=== PATIENT | female | born 1990 | race Caucasian/White ===

== ENCOUNTER 2019-02-02 09:14 | Day surgery (SDC) | payer OTHER ==
[~2019-02-02] VITALS: Ht 152.4 cm; Wt 82.8 kg
[~2019-02-02 09:14] MED LIST: LIDOCAINE 2% INJ 100 MG/5 ML SDV (FOR ANES.) As Ordered ONE; LR 1,000 ML IV ONE; METOCLOPRAMIDE INJ 10MG/2ML VIAL (J2765) As Ordered ONE; MIDAZOLAM INJ 2 MG/2 ML VIAL (J2250) As Ordered ONE; MULTCAP PO; OMEGCAP4 PO; PROPOFOL 200 MG/20 ML VIAL As Ordered ONE; ROCURONIUM BROMIDE 50 MG/5 ML VIAL As Ordered ONE; SPIR100T3 PO; SUGAMMADEX SODIUM 500 MG/5 ML VIAL (BRIDION) As Ordered ONE; YAZ1TAB PO; dexameTHASONE 4 MG/ML 1ML VIAL (J1100) As Ordered ONE; fentaNYL 100 MCG/2 ML INJECTION (J3010) As Ordered ONE
[2019-02-02 10:07] LABS: HEMATOCRIT 42.5 % (36.0-47.0); HEMOGLOBIN 14.6 g/dl (12.0-15.5); MEAN CORPUSCULAR HEMOGLOBIN 30.3 pg (27.0-33.0); MEAN CORPUSCULAR HGB CONC 34.4 g/dl (32.0-36.5); MEAN CORPUSCULAR VOLUME 88.2 fl (80.0-96.0); PLATELET COUNT, AUTOMATED 243 10^3/uL (150-450); RED BLOOD COUNT 4.82 10^6/uL (4.00-5.40); WHITE BLOOD COUNT 8.8 10^3/uL (4.0-10.0)
[2019-02-02 10:32] LABS: HCG, SERUM QUALITATIVE NEGATIVE (NEGATIVE)
[2019-02-02] MEDS ORDERED: BUPIVACAINE HCL 0.25% 30 ML VIAL As Ordered ONE (13:20)
[2019-02-02] MEDS ORDERED: KETOROLAC 60 MG/2 ML VIAL (J1885) As Ordered ONE (14:05)
[2019-02-02] MEDS ORDERED: SUGAMMADEX SODIUM 500 MG/5 ML VIAL (BRIDION) As Ordered ONE (14:25)
[2019-02-02] MEDS ORDERED: oxyCODONE 5MG TAB As Ordered ONE (15:22)
[2019-02-02] MEDS ORDERED: fentaNYL 100 MCG/2 ML INJECTION (J3010) As Ordered ONE (15:22)
[2019-02-02] MEDS ORDERED: PROMETHAZINE INJ 25 MG/ML VIAL (J2550) As Ordered ONE (15:27)
[2019-02-02] MEDS ORDERED: METOCLOPRAMIDE INJ 10MG/2ML VIAL (J2765) IV PRN (15:30)
[2019-02-02] MEDS ORDERED: LR 1,000 ML IV SCH (15:30)
[2019-02-02] MEDS ORDERED: oxyCODONE 5MG TAB PO PRN (15:30)
[2019-02-02] MEDS: fentaNYL 100 MCG/2 ML INJECTION (J3010) IV PRN ×4 (15:30→15:45)
[2019-02-02] MEDS: PROMETHAZINE INJ 25 MG/ML VIAL (J2550) IV PRN ×2 (15:30→15:35)
[2019-02-02 18:08] VITALS: BP 160/98
--- NOTE | 2019-02-02 21:22 | RO ---
DATE OF PROCEDURE: 02/02/2019 PREOPERATIVE DIAGNOSES: Chronic pelvic pain and dysmenorrhea. POSTOPERATIVE DIAGNOSES: 1. Chronic pelvic pain and dysmenorrhea. 2. Stage 1 endometriosis. OPERATION PERFORMED: Operative laparoscopy with lysis of adhesions, biopsy of peritoneum and the posterior cul-de-sac. SURGEON: Tonay Munoz MD OPERATIONS MANAGEMENT PROFESSIONALS: Dr. Justin Duenas CLINICAL SERVICE: Gynecology ANESTHESIA: INDICATION FOR OPERATION: Keyanna is a 28-year-old (G) 0 who had been dealing with pelvic pain and painful periods for a long time. She has been on oral contraceptive pill chronically and has changed types of oral contraceptive pill multiple times over the years to try to maintain control over her dysmenorrhea. We talked about doing a diagnostic laparoscopy, possible operative laparoscopy in the office for diagnosis and possible treatment of pelvic pain if it was related to endometriosis or adhesive disease, and she did desire to proceed with surgery. MATERIAL FORWARDED TO THE LAB: Biopsy of peritoneum and the posterior cul-de-sac. DESCRIPTION OF FINDINGS: Laparoscopic findings included a tiny fundal uterine fibroid. Fallopian tubes and ovaries were normal in appearance. Uterus itself was overall normal in appearance. The appendix was not visualized. The liver edge was normal in appearance. There was sprinkling of endometriosis lesions within the posterior cul-de-sac, none within the ovarian fossa, but the lesions were somewhat concentrated around the uterosacral ligaments. There was no adhesive disease. These lesions were very small, brown in color. She had a very faint small scarring that was white just underneath the uterus and the posterior cul-de-sac. INFECTION CLASSIFICATION: 2 ESTIMATED BLOOD LOSS: 5 mL URINE OUTPUT: 400 mL IV FLUIDS: 1 liter of lactated Ringer's. DESCRIPTION OF PROCEDURE: After obtaining informed consent, Keyanna was taken to the operating room. General endotracheal anesthesia was established, and she was placed in low lithotomy position. She was prepped and draped in the usual sterile fashion and placed in Trendelenburg position. Cano catheter was placed. Millstone speculum was placed in the vagina and visualization of the cervix was obtained. Anterior lip of the cervix was grasped with a single-tooth tenaculum. Uterus sounded to 9 cm. The [employer] uterine manipulator was placed through the cervix into the uterus. Tenaculum was removed, the site hemostasis observed and the bivalve speculum was removed. The patient was taken out of Trendelenburg position and after anesthetizing with 0.25% Marcaine, a 5 mm incision was made in the infraumbilical fold beneath the subcutaneous tissue. Lower abdominal wall was manually grabbed and lifted up and Optiview trocar was placed at a 90-degree angle. Laparoscope was advanced through the port, and intra-abdominal placement was confirmed. No injury was noted below the point of entry. Continuous low carbon dioxide began to establish pneumoperitoneum at 15 mmHg pressure. We placed the patient in stepper Trendelenburg position after doing our survey of the upper abdomen, which revealed a normal liver edge. We then could use the uterine manipulator to move the uterus up, and we were able to visualize the pelvis in its entirety. A that time, because I did note the presence of endometriosis, I made the decision to place two more ports. These were 5 mm in size, so two 5 mm incisions were made, one in the right lower quadrant, one in the left lower quadrant after anesthetizing with 0.25% Marcaine and the 5 mm trocars were placed under direct visualization. The uterus itself was overall normal in appearance with the exception of a very tiny fundal fibroid. The fallopian tubes were normal in appearance. The ovaries were normal in appearance. The anterior cul-de-sac was overall normal in appearance as well as the ovarian fossa. There were filmy adhesions of the large intestine to the left abdominal wall. These were taken down with laparoscopic nadine, and there was no endometriosis observed in the place. Then, we concentrated on the posterior cul-de-sac of the uterus where there were scattered very small endometriosis lesions that were brown in color, there were some prominent blood vessels also noted there, a little bit of white old scarring, a couple millimeters in size just underneath the uterus. The endometriosis lesions were concentrated really around the uterosacral ligaments, but there were no obvious windows, no adhesive disease, nothing was adhered in the posterior cul-de-sac; it was just the presence of the lesions that we noted. I used the monopolar nadine to take a biopsy on the right side of the posterior cul-de-sac so that peritoneal biopsy was removed from the field and will be taken to pathology. And then I used the monopolar scissors just to cauterize on the left side of the posterior cul-de-sac some small endometriosis lesions. These were the most notable and even these were very small. At that point, there was hemostasis noted at the biopsy site and hemostasis noted where we took down the adhesion of the large bowel on the left pelvic sidewall, and so we terminated the procedure. The right lower quadrant, left lower quadrant ports were removed under direct visualization, and they were observed to be hemostatic. The pneumoperitoneum was released prior to the removal of the umbilical port. Incisions were reapproximated using #4-0 Monocryl and Dermabond. All instruments were removed from the vagina. Hemostasis was noted. The patient was returned to a supine position. All counts were correct times two. The patient tolerated the procedure well and was awakened from general anesthesia and was taken to the recovery room in stable condition.
== END 2019-02-02 18:10 | disposition home or self-care (01) ==
LOC: M SDC 09:14
PROVIDERS: ATTEND Obstetrics & Gynecology
DX: N80.3 Endometriosis of pelvic peritoneum (principal); N94.6 Dysmenorrhea, unspecified; N73.6 Female pelvic peritoneal adhesions (postinfective); Z79.899 Other long term (current) drug therapy
CPT/HCPCS: 36415; 49321; 84703; 85027; 86850; 86900; 86901; 88305; J1100; J1885; J2250; J2765; J3010

== ENCOUNTER → 2019-04-06 | Outpatient (CLI) | payer OTHER ==
[~2019-04-06] MED LIST changes: -LIDOCAINE 2% INJ 100 MG/5 ML SDV (FOR ANES.) As Ordered ONE; -LR 1,000 ML IV ONE; -METOCLOPRAMIDE INJ 10MG/2ML VIAL (J2765) As Ordered ONE; -MIDAZOLAM INJ 2 MG/2 ML VIAL (J2250) As Ordered ONE; -PROPOFOL 200 MG/20 ML VIAL As Ordered ONE; -ROCURONIUM BROMIDE 50 MG/5 ML VIAL As Ordered ONE; -SUGAMMADEX SODIUM 500 MG/5 ML VIAL (BRIDION) As Ordered ONE; -dexameTHASONE 4 MG/ML 1ML VIAL (J1100) As Ordered ONE; -fentaNYL 100 MCG/2 ML INJECTION (J3010) As Ordered ONE
--- NOTE | 2019-04-06 12:52 | REP ---
TRIPLE PHASE BONE SCAN LOWER LEGS: Following the intravenous administration of 20.1 millicuries of technetium 99m MDP, patient's lower legs are imaged in the flow phase in the anterior and posterior projections showing symmetrical blood flow. Immediate blood pool and 2.5-hour delayed images are performed of the lower legs in various projections. There is no abnormal blood pooling. On the delayed images, there is mild linear oblique uptake in the distal left tibia. This is at the site of an old fracture as seen on prior outside plain films 10/19/2018. This is consistent with incomplete healing of this fracture. Electronically Signed by Wali Pelaez MD 04/07/2019 12:05 A
== END ==
LOC: M RAD 08:34
DX: M25.572 Pain in left ankle and joints of left foot (principal)
CPT/HCPCS: 78315; A9503

== ENCOUNTER → 2019-05-21 | Outpatient (CLI) | payer OTHER ==
--- NOTE | 2019-05-21 09:28 | REP ---
CT of the left tibia fibula without IV contrast: Axial images are acquired by helical scanning and a reformatted sagittal coronal projections. Comparison is a plain film study of the left ankle dated 10/19/2018. On the comparison study. There is an oblique healed fracture of the distal tibia with a focal zone of lucency at the periphery of the fracture. By CT. The fracture is again identified. The focal lucency on the comparison plain film study corresponds to a cleft extending from the anterolateral cortex of the distal tibia at the fracture site partially into the medullary canal compatible with partial fibrous union of the fracture. The remainder of the fracture appears to have healed by osseous union. There are no lytic, blastic or destructive skeletal changes. There is mild focal osteoporosis adjacent to the fracture site. There is no periosteal reactive change. There is no edema in the surrounding soft tissues. Impression: Oblique fracture of the distal tibia that has partially healed by fibrous union partially healed by osseous union. Electronically Signed by Wali Taylor MD 05/21/2019 09:20 A
--- NOTE | 2019-05-21 09:31 | REP ---
CT of the left ankle: Comparison is a outside plain film study dated 10/19/2018. Axial images are acquired helical scanning and a reformatted sagittal coronal projections. There is a healed fracture of the distal tibia. There is a cleft at the anterolateral margin of the fracture suggesting partial fibrous union. The remainder of fractures healed by osseous union. The fracture has healed in normal position alignment. Mineralization is normal. There are no lytic, blastic or destructive skeletal changes. No periosteal reactive change. No edema in the surrounding soft tissues. The subtalar joint is unremarkable. The fibulotalar joint is unremarkable. The tibiotalar joint is unremarkable. There is focal ostial perosis adjacent to the fracture site. Impression: Old oblique fracture of the distal tibia has healed in satisfactory position alignment by partial fibrous union and partial osseous union. Electronically Signed by Wali Taylor MD 05/21/2019 09:23 A
== END ==
LOC: M RAD 08:02
PROVIDERS: ATTEND Orthopaedic Surgery
DX: M25.572 Pain in left ankle and joints of left foot (principal)